=== PATIENT | male | born 1985 | race Two or more races ===

== ENCOUNTER 2021-10-10 17:22 | Emergency (ER) | payer OTHER ==
[~2021-10-10] VITALS: Ht 188 cm; Wt 83.9 kg
== END 2021-10-10 18:36 | disposition home or self-care (01) ==
LOC: ER 17:22
DX: J03.90 Acute tonsillitis, unspecified (principal)

== ENCOUNTER 2022-10-15 15:33 | Emergency (ER) | payer OTHER ==
[~2022-10-15] VITALS: Ht 188 cm; Wt 83.9 kg
== END 2022-10-15 17:56 | disposition home or self-care (01) ==
LOC: ER 15:33
DX: J03.80 Acute tonsillitis due to other specified organisms (principal); B96.89 Other specified bacterial agents as the cause of diseases classified elsewhere

== ENCOUNTER 2023-08-09 11:35 | Emergency (ER) | payer OTHER ==
[~2023-08-09] VITALS: Ht 188 cm; Wt 77.1 kg
== END 2023-08-09 13:50 | disposition home or self-care (01) ==
LOC: ER 11:36
DX: G51.0 Bell's palsy (principal)
CPT/HCPCS: 96372; 99284; J1100

== ENCOUNTER 2024-12-03 14:18 | Emergency (ER) | payer OTHER ==
[~2024-12-03] VITALS: Ht 188 cm; Wt 79.4 kg
[2024-12-03] MEDS ORDERED: ACETAMINOPHEN 500 MG GEL..CAP PO ONE ×2 (16:44→16:45)
[2024-12-03 17:18] LABS: HEMATOCRIT 36.5 % (39.0-48.0); HEMOGLOBIN 12.2 g/dL (13-16.00); MEAN CORPUSCULAR HEMOGLOBIN 27.7 pg (27.00-32.0); MEAN CORPUSCULAR HGB CONC 33.4 g/dl (32.0-36.0); PLATELET COUNT 265 K/uL (150-450); RED BLOOD COUNT 4.39 M/uL (4.00-6.00); RED CELL DISTRIBUTION WIDTH 14.1 % (11.5-14.5)
[2024-12-03 18:01] LABS: CALCIUM 9.7 mg/dL (8.5-10.1); CREATININE SERUM 1.15 mg/dL (0.70-1.30); GFR 71.55; POTASSIUM 4.29 mEq/L (3.5-5.1)
[2024-12-03] MEDS ORDERED: AMOX1TAB5 PO (20:11)
[2024-12-03] MEDS ORDERED: BENZONATATE200 M1 PO (20:11)
[2024-12-03] MEDS ORDERED: ACETIC ACID W/H10 ML OTIC (20:14)
== END 2024-12-03 21:59 | disposition home or self-care (01) ==
LOC: ER 14:21
PROVIDERS: General Practice
DX: J06.0 Acute laryngopharyngitis (principal); R53.81 Other malaise